=== PATIENT | male | born 1955 ===

== ENCOUNTER 2019-01-13 09:40 | Day surgery (SDC) | payer MEDICARE, OTHER ==
[~2019-01-13] VITALS: Ht 182.9 cm; Wt 114.2 kg
[~2019-01-13 09:40] MED LIST: AMLO5 PO; ATEN50 PO; B Complex #11 EACH PO; GLUC500 PO; LISI20 PO; OMEG1CAP30 PO; ROSU10TA PO; TRAZ50 PO; VITAMIN D35000 UNI1 PO
== END 2019-01-13 12:00 | disposition home or self-care (01) ==
LOC: ORSCSDS 09:40
PROVIDERS: Surgery
PROC: 0DBN8ZX Excision of Sigmoid Colon, Via Natural or Artificial Opening Endoscopic, Diagnostic (ICD-10-PCS; principal; 2019-01-13 11:00)
DX: Z12.11 Encounter for screening for malignant neoplasm of colon (principal); Z83.71 Family history of colonic polyps; D12.5 Benign neoplasm of sigmoid colon; I10 Essential (primary) hypertension; E78.5 Hyperlipidemia, unspecified; E66.9 Obesity, unspecified; Z68.34 Body mass index [BMI] 34.0-34.9, adult; Z79.899 Other long term (current) drug therapy
CPT/HCPCS: 82947; 88305; J2704; J7120